=== PATIENT | male | born 1965 | race Caucasian/White ===

== ENCOUNTER 2016-11-18 09:23 | Outpatient (CLI) | payer MEDICAID ==
[2016-11-18 18:46] LABS: CHOL/HDL RATIO 3.5 (<5.0); CHOLESTEROL 189 mg/dL; HDL CHOLESTEROL 54 mg/dL; LDL/HDL RATIO 2.1 (<3.6); TRIGLYCERIDES 93 mg/dL; VLDL CHOLESTEROL 19 mg/dL
== END 2016-11-18 09:24 | disposition home or self-care (01) ==
LOC: LAB.F 09:23
PROVIDERS: ATTEND Internal Medicine
DX: Z13.220 Encounter for screening for lipoid disorders (principal)
CPT/HCPCS: 36415; 80061

== ENCOUNTER 2017-02-22 09:38 | Outpatient (CLI) | payer MEDICAID ==
--- NOTE | 2017-02-23 14:41 | XRAY Report ---
EXAM: RIGHT KNEE RADIOGRAPHY, 4 VIEWS EXAM DATE: 02/22/2017 09:52 AM. CLINICAL HISTORY: 51-year-old male with right knee pain. COMPARISON: MRI right knee 12/21/2011. TECHNIQUE: Frontal, both oblique and lateral projections performed. FINDINGS: Bones: Minor spurring of the tibial spines and medial margin of the tibial plateau, similar to prior study. No fracture, lytic or destructive process. Joints: Mild narrowing of the medial joint space with good preservation of the lateral and patellofem oral joints. No joint effusion or subluxation. Soft Tissues: Normal. No soft tissue swelling. IMPRESSION: Mild osteoarthritis predominantly in the medial joint compartment, similar to prior MRI s tudy of December 2011. No acute process. [facility] Referring Provider Line: [phone] SITE ID: [id number]
== END 2017-02-22 09:39 | disposition home or self-care (01) ==
LOC: DI.S 09:38
PROVIDERS: ATTEND Nurse Practitioner Family
DX: M17.11 Unilateral primary osteoarthritis, right knee (principal)

== ENCOUNTER 2017-03-04 11:41 | Outpatient (CLI) | payer MEDICAID ==
--- NOTE | 2017-03-04 21:49 | MRI Report ---
EXAM: RIGHT KNEE MRI WITHOUT CONTRAST EXAM DATE: 03/04/2017 12:46 PM. CLINICAL HISTORY: Right medial meniscus tear. Twisting injury after fall 3 months ago. COMPARISON: 02/22/2017 radiograph. TECHNIQUE: Multiplanar, multisequence T1-weighted and fluid-sensitive sequences of the knee without c ontrast. Other: None. FINDINGS: Bones: Minimal tibiofemoral osteophytes are present. No marrow edema. Articular Cartilage: Unremarkable. Medial Meniscus: The posterior horn of the medial meniscus demonstrates a horizontal tear (series 601 , image 6). The body of the medial meniscus is small in size. Lateral Meniscus: The lateral meniscus is intact. Cruciate Ligaments: The anterior cruciate ligament is intact. There is a grade 2 sprain of the firearms expert ior cruciate ligament. Collateral Ligaments: The medial collateral and lateral collateral ligamentous structures are intact. Tendons: The quadriceps, patellar, semimembranosus, and popliteus tendons are unremarkable. Musculature: No edema or fatty atrophy. Other: Mild knee effusion is present. No popliteal cyst. No loose bodies. The medial and lateral ret inacula are intact. Prepatellar subcutaneous edema is present. IMPRESSION: 1. Minimal osteoarthritis. 2. Grade 2 sprain of the posterior cruciate ligament. 3. Tear of the posterior horn of the medial meniscus. [facility] MUSCULOSKELETAL RADIOLOGY SECTION Referring Provider Line: [phone] SITE ID: [id number]
== END 2017-03-04 11:42 | disposition home or self-care (01) ==
LOC: DI 11:41
PROVIDERS: ATTEND Orthopaedic Surgery
DX: M17.11 Unilateral primary osteoarthritis, right knee (principal); S83.521A Sprain of posterior cruciate ligament of right knee, initial encounter; S83.241A Other tear of medial meniscus, current injury, right knee, initial encounter

== ENCOUNTER 2017-05-03 06:08 | Day surgery (SDC) | payer MEDICAID ==
[2017-05-03] MEDS ORDERED: ceFAZolin 2 GM/50 ML 2 GM/50 ML BAG IV ONE (06:32)
--- NOTE | 2017-05-03 06:51 | XRAY Preliminary Report ---
Exam: XR CHEST 2 VIEW X-RAY IMPRESSION: 1. No acute cardiopulmonary abnormality demonstrated. 2. Small lobulated high density object projects over the left lung base region of the frontal view, a nd not apparent on the lateral view. This could represent artifact related to debris on the plate or a bone island. [facility] SITE ID: [id number]
--- NOTE | 2017-05-03 06:51 | XRAY Report ---
EXAM: CHEST RADIOGRAPHY EXAM DATE: 05/03/2017 06:42 AM. CLINICAL HISTORY: Cough, preoperative COMPARISON: None. TECHNIQUE: 2 views. FINDINGS: Lungs/Pleura: Small lobulated high density object projects over the left lung base region of the fron caterina view, and not apparent on the lateral view. No focal opacities evident. No pleural effusion. No p neumothorax. Normal volumes. Mediastinum: Heart and mediastinal contours are unremarkable. Other: Right humeral head bone anchor noted. There is mild to moderate multilevel degenerative change within the spine. IMPRESSION: 1. No acute cardiopulmonary abnormality demonstrated. 2. Small lobulated high density object projects over the left lung base region of the frontal view, a nd not apparent on the lateral view. This could represent artifact related to debris on the plate or a bone island. [facility] Referring Provider Line: [phone] SITE ID: [id number]
[2017-05-03] MEDS ORDERED: LACTATED RINGERS 1,000 ML IV ONE ×2 (07:04→08:55)
[2017-05-03] MEDS ORDERED: EPINEPHrine 1 MG/ML VIAL IR ONE (07:23)
[2017-05-03] MEDS ORDERED: DEXAMETHASONE 4 MG/ML VIAL IVP ONE (08:05)
[2017-05-03] MEDS ORDERED: fentaNYL 100 MCG/2 ML VIAL IVP ONE (08:05)
[2017-05-03] MEDS ORDERED: ONDANSETRON 4 MG/2 ML VIAL IVP ONE (08:05)
[2017-05-03] MEDS ORDERED: ACETAMINOPHEN 1,000 MG/100 ML 100 ML IV ONE (08:05)
[2017-05-03] MEDS ORDERED: LIDOCAINE-MPF 2% 5 ML VIAL IM ONE (08:05)
[2017-05-03] MEDS ORDERED: KETOROLAC 30 MG/ML VIAL IVP ONE (08:05)
[2017-05-03] MEDS ORDERED: PROPOFOL 200 MG/20 ML VIAL IVP ONE (08:05)
[2017-05-03] MEDS ORDERED: MIDAZOLAM 2 MG/2 ML VIAL IVP ONE (08:05)
[2017-05-03] MEDS ORDERED: LIDOCAINE MPF 2%-EPI 1:200000 20 ML VIAL SUBQ ONE (08:12)
[2017-05-03] MEDS ORDERED: BUPIVACAINE 0.25% PF 30 ML VIAL SUBQ ONE (08:13)
[2017-05-03] MEDS ORDERED: oxyCOD/ACETAMIN 5 MG/325 MG TABLET PO ONE (09:47)
[2017-05-03 10:07] VITALS: BP 135/74
--- NOTE | 2017-05-03 11:06 | OPERATIVE REPORT ---
DATE OF SERVICE: 05/03/2017 Physician: Clint Anderson MD PREOPERATIVE DIAGNOSIS: Right knee medial meniscal tear. POSTOPERATIVE DIAGNOSIS: Right knee medial meniscal tear. PROCEDURE PERFORMED: Right knee arthroscopic partial medial meniscectomy. SURGEON: Clint Anderson MD SENIOR TRAINING SPECIALIST: None. ANESTHESIA: General. INDICATIONS FOR PROCEDURE: This man had been bothered for several months with right knee pain after injuring it stepping it over a short child gate in the house. MRI scan showed a tear in the posterior horn of the medial meniscus and a somewhat extruded medial meniscus. FINDINGS: The patellofemoral joint had no chondromalacia. There was a moderate amount of surrounding synovitis. The lateral compartment was seen briefly and the meniscus was intact and there was no chondromalacia. The ACL appeared intact with some mild synovitis around it. In the medial compartment, there was a degenerative tear beginning at what I think was straight medial and working around posteriorly. A straight posterior area was possible to feel with the meniscal hook, but not directly see. PROCEDURE: The patient was brought to the operating room, and placed under adequate general anesthesia. The brief timeout was held because of the injection. After sterile prep with alcohol, 40 mL of a mixture of 0.25% Marcaine and 2% lidocaine with epinephrine. This was instilled intraarticularly. One mL of this mixture was then placed in the subcutaneous tissue at the expected anterior portal areas. The right knee was prepped and sterilely draped in usual fashion. Formal timeout was then held to identify patient, site and procedure. The inferolateral portal was established and the arthroscope placed in. The supramedial patellar area was utilized for a large Veress needle, which was placed in for inflow of saline and epinephrine. Finally, an anteromedial portal is established for the instrumentation. Exam of the knee was done and is reported above. The attention was then directed to the posterior part of the medial compartment. With care to avoid damage to the articular surfaces, a small biter and upturn biter were slipped in to start a straight medial area and remove meniscus curving around posteriorly. The rotary shaver was utilized to clear material and smooth edges. The hot wand was then utilized to smooth edges as needed. No meniscal material could be pulled forward. Knee was irrigated with normal saline. A 4-0 nylon [id number] sutures were used to close the portals. Sterile bandage was applied. The patient was then awakened, extubated, and taken to the recovery room in good condition, having tolerated the procedure well with 1 or 2 mL blood loss at most. TD: 05/03/2017 11:06
== END 2017-05-03 06:09 | disposition home or self-care (01) ==
LOC: SDS 06:08
PROVIDERS: ATTEND Orthopaedic Surgery
PROC: 0SBC4ZZ Excision of Right Knee Joint, Percutaneous Endoscopic Approach (ICD-10-PCS; principal; 2017-05-03 07:30)
DX: S83.241A Other tear of medial meniscus, current injury, right knee, initial encounter (principal); F17.210 Nicotine dependence, cigarettes, uncomplicated
CPT/HCPCS: 29881; 71046; A9270; J0131; J0171; J0690; J7120

== ENCOUNTER 2017-05-07 11:10 | Outpatient (CLI) | payer MEDICAID ==
--- NOTE | 2017-05-07 13:24 | Ultrasound Report ---
RIGHT LEG VENOUS DUPLEX: 05/07/2017 CLINICAL INDICATION: Swelling after surgery. TECHNIQUE: Real-time sonographic vascular imaging was performed by the certified ophthalmic medical technician through the right lower extremity utilizing both color flow and Doppler spectral analysis. Multiple merchandising representative static images were saved for review. FINDINGS: A right lower extremity venous sonogram is performed revealing the common femoral, superficial femoral, profunda femoris, and popliteal veins to be adequately visualized without intraluminal defects. There is normal venous compression, augmentation, phasicity, and spontaneity of venous flow. In the calf, the visualized more cephalad portions of posterior tibial and peroneal veins are grossly compressible, without filling defects. IMPRESSION: NO EVIDENCE OF DEEP VENOUS THROMBOSIS. TD: 05/07/2017 13:23
== END 2017-05-07 11:11 | disposition home or self-care (01) ==
LOC: DI 11:10
PROVIDERS: ATTEND Orthopaedic Surgery
DX: R22.41 Localized swelling, mass and lump, right lower limb (principal)

== ENCOUNTER 2018-06-13 07:21 | Outpatient (CLI) | payer MEDICAID ==
[2018-06-13 10:28] LABS: BASOPHILS # (AUTO) 0.1 10^3/uL (0.0-0.1); BASOPHILS % (AUTO) 0.7 %; EOSINOPHILS # (AUTO) 0.1 10^3/uL (0.0-0.7); EOSINOPHILS % (AUTO) 1.1 %; HGB - HEMOGLOBIN 15.6 g/dL (14.0-18.0); LYMPHOCYTES # (AUTO) 2.6 10^3/uL (1.5-3.5); LYMPHOCYTES % (AUTO) 30.2 %; MEAN CORPUSCULAR HEMOGLOBIN 33.1 pg (27.0-31.0); MEAN CORPUSCULAR HGB CONC 34.3 g/dL (32.0-36.0); MEAN CORPUSCULAR VOLUME 96.4 fL (80.0-94.0); MEAN PLATELET VOLUME 8.7 fL (7.4-11.4); MONOCYTES # (AUTO) 0.6 10^3/uL (0.0-1.0); MONOCYTES % (AUTO) 6.7 %; NEUTROPHILS # (AUTO) 5.3 10^3/uL (1.5-6.6); NEUTROPHILS % (AUTO) 61.3 %; PLT - PLATELET COUNT 252 10^3/uL (130-450); RED CELL DISTRIBUTION WIDTH 13.3 % (12.0-15.0); WHITE BLOOD COUNT 8.6 x10^3/uL (4.8-10.8)
[2018-06-13 10:39] LABS: ALBUMIN 3.9 g/dL (3.2-5.5); ALBUMIN/GLOBULIN RATIO 1.1 (1.0-2.2); BILIRUBIN,TOTAL 0.5 mg/dL (0.2-1.0); CALCIUM 9.3 mg/dL (8.5-10.3); CREATININE 0.9 mg/dL (0.6-1.2); TOTAL PROTEIN 7.4 g/dL (6.7-8.2)
== END 2018-06-13 07:22 | disposition home or self-care (01) ==
LOC: LAB.F 07:21
PROVIDERS: ATTEND Physician Assistant Medical
DX: Z00.00 Encounter for general adult medical examination without abnormal findings (principal); R03.0 Elevated blood-pressure reading, without diagnosis of hypertension; Z12.5 Encounter for screening for malignant neoplasm of prostate
CPT/HCPCS: 36415; 80053; 84153; 85025

== ENCOUNTER 2019-11-01 11:17 | Outpatient (CLI) | payer MEDICAID ==
[2019-11-01 15:17] LABS: BASOPHILS % (AUTO) 0.3 %; EOSINOPHILS # (AUTO) 0.1 10^3/uL (0.0-0.7); EOSINOPHILS % (AUTO) 1.5 %; HGB - HEMOGLOBIN 14.2 g/dL (14.0-18.0); LYMPHOCYTES # (AUTO) 1.8 10^3/uL (1.5-3.5); LYMPHOCYTES % (AUTO) 26.3 %; MEAN CORPUSCULAR HEMOGLOBIN 31.6 pg (27.0-31.0); MEAN CORPUSCULAR HGB CONC 35.8 g/dL (32.0-36.0); MEAN CORPUSCULAR VOLUME 88.2 fL (80.0-94.0); MEAN PLATELET VOLUME 8.9 fL (7.4-11.4); MONOCYTES # (AUTO) 0.5 10^3/uL (0.0-1.0); MONOCYTES % (AUTO) 7.4 %; NEUTROPHILS # (AUTO) 4.4 10^3/uL (1.5-6.6); NEUTROPHILS % (AUTO) 64.2 %; PLT - PLATELET COUNT 355 10^3/uL (130-450); RED CELL DISTRIBUTION WIDTH 11.6 % (12.0-15.0); WHITE BLOOD COUNT 6.8 x10^3/uL (4.8-10.8)
[2019-11-01 15:34] LABS: ALBUMIN 4.1 g/dL (3.2-5.5); ALBUMIN/GLOBULIN RATIO 1.5 (1.0-2.2); BILIRUBIN,TOTAL 0.5 mg/dL (0.2-1.0); CALCIUM 9.1 mg/dL (8.5-10.3); CREATININE 0.8 mg/dL (0.6-1.2); TOTAL PROTEIN 6.8 g/dL (6.7-8.2)
== END 2019-11-01 11:18 | disposition home or self-care (01) ==
LOC: LAB.S 11:17
PROVIDERS: ATTEND Family Medicine
DX: Z00.00 Encounter for general adult medical examination without abnormal findings (principal); R43.8 Other disturbances of smell and taste; R03.0 Elevated blood-pressure reading, without diagnosis of hypertension; F17.209 Nicotine dependence, unspecified, with unspecified nicotine-induced disorders
CPT/HCPCS: 36415; 80053; 84443; 85025

== ENCOUNTER 2019-11-07 08:30 | Outpatient (CLI) | payer MEDICAID ==
[2019-11-07 15:43] LABS: BASOPHILS % (AUTO) 0.3 %; EOSINOPHILS # (AUTO) 0.1 10^3/uL (0.0-0.7); EOSINOPHILS % (AUTO) 1.2 %; HGB - HEMOGLOBIN 14.4 g/dL (14.0-18.0); LYMPHOCYTES # (AUTO) 1.8 10^3/uL (1.5-3.5); LYMPHOCYTES % (AUTO) 26.1 %; MEAN CORPUSCULAR HEMOGLOBIN 32.1 pg (27.0-31.0); MEAN CORPUSCULAR VOLUME 89.1 fL (80.0-94.0); MEAN PLATELET VOLUME 8.8 fL (7.4-11.4); MONOCYTES # (AUTO) 0.6 10^3/uL (0.0-1.0); MONOCYTES % (AUTO) 8.9 %; NEUTROPHILS # (AUTO) 4.2 10^3/uL (1.5-6.6); NEUTROPHILS % (AUTO) 63.2 %; PLT - PLATELET COUNT 359 10^3/uL (130-450); RED BLOOD COUNT 4.49 10^6/uL (4.70-6.10); RED CELL DISTRIBUTION WIDTH 11.5 % (12.0-15.0); WHITE BLOOD COUNT 6.7 x10^3/uL (4.8-10.8)
[2019-11-07 16:01] LABS: ALBUMIN/GLOBULIN RATIO 1.4 (1.0-2.2); BILIRUBIN,TOTAL 0.8 mg/dL (0.2-1.0); CREATININE 0.6 mg/dL (0.6-1.2); TOTAL PROTEIN 6.9 g/dL (6.7-8.2)
== END 2019-11-07 08:31 | disposition home or self-care (01) ==
LOC: LAB.S 08:30
PROVIDERS: ATTEND Family Medicine
DX: Z00.00 Encounter for general adult medical examination without abnormal findings (principal); R43.8 Other disturbances of smell and taste; R03.0 Elevated blood-pressure reading, without diagnosis of hypertension; F17.209 Nicotine dependence, unspecified, with unspecified nicotine-induced disorders; E87.1 Hypo-osmolality and hyponatremia
CPT/HCPCS: 36415; 80053; 84443; 85025

== ENCOUNTER 2019-11-10 08:08 | Outpatient (CLI) | payer MEDICAID ==
[2019-11-10 15:19] LABS: BASOPHILS % (AUTO) 0.3 %; EOSINOPHILS # (AUTO) 0.1 10^3/uL (0.0-0.7); EOSINOPHILS % (AUTO) 1.4 %; HGB - HEMOGLOBIN 14.4 g/dL (14.0-18.0); LYMPHOCYTES # (AUTO) 1.7 10^3/uL (1.5-3.5); LYMPHOCYTES % (AUTO) 24.8 %; MEAN CORPUSCULAR HEMOGLOBIN 31.9 pg (27.0-31.0); MEAN CORPUSCULAR HGB CONC 35.5 g/dL (32.0-36.0); MEAN PLATELET VOLUME 8.8 fL (7.4-11.4); MONOCYTES # (AUTO) 0.5 10^3/uL (0.0-1.0); MONOCYTES % (AUTO) 7.7 %; NEUTROPHILS # (AUTO) 4.5 10^3/uL (1.5-6.6); NEUTROPHILS % (AUTO) 65.5 %; PLT - PLATELET COUNT 371 10^3/uL (130-450); RED BLOOD COUNT 4.51 10^6/uL (4.70-6.10); RED CELL DISTRIBUTION WIDTH 11.7 % (12.0-15.0); WHITE BLOOD COUNT 6.9 x10^3/uL (4.8-10.8)
[2019-11-10 15:30] LABS: CALCIUM 9.4 mg/dL (8.5-10.3); CREATININE 0.6 mg/dL (0.6-1.2)
== END 2019-11-10 08:09 | disposition home or self-care (01) ==
LOC: LAB.S 08:08
PROVIDERS: ATTEND Family Medicine
DX: R03.0 Elevated blood-pressure reading, without diagnosis of hypertension (principal); E87.1 Hypo-osmolality and hyponatremia
CPT/HCPCS: 36415; 80048; 82024; 83930; 83935; 85025

== ENCOUNTER 2019-11-17 08:19 | Outpatient (CLI) | payer MEDICAID ==
[2019-11-17 15:27] LABS: ALBUMIN 4.2 g/dL (3.2-5.5); ALBUMIN/GLOBULIN RATIO 1.6 (1.0-2.2); BILIRUBIN,TOTAL 0.6 mg/dL (0.2-1.0); CALCIUM 9.1 mg/dL (8.5-10.3); CREATININE 0.6 mg/dL (0.6-1.2); TOTAL PROTEIN 6.9 g/dL (6.7-8.2)
== END 2019-11-17 08:20 | disposition home or self-care (01) ==
LOC: LAB.S 08:19
PROVIDERS: ATTEND Physician Assistant
DX: E87.1 Hypo-osmolality and hyponatremia (principal); B83.9 Helminthiasis, unspecified
CPT/HCPCS: 36415; 80053; 82024; 83930; 87177; 87209